=== PATIENT | female | born 2000 ===

== ENCOUNTER → 2021-05-11 | Outpatient (REF) | LOC: M EMP 14:04 | PROVIDERS: ATTEND Family Medicine | DX: Z11.52 Encounter for screening for COVID-19 (principal) ==

== ENCOUNTER → 2021-06-04 | Outpatient (REF) | LOC: M LABSMTC 11:20 | PROVIDERS: ATTEND Family Medicine | DX: Z20.822 Contact with and (suspected) exposure to COVID-19 (principal) ==